=== PATIENT | female | born 1965 | race African-American/Black ===

== ENCOUNTER 2017-06-10 12:03 | Outpatient (CLI) | payer BC ==
--- NOTE | 2017-06-10 15:38 | XRay Report ---
XRAY CHEST TWO VIEWS: 06/10/17 12:03:00 CLINICAL: +PPD COMPARISON: 06/15/15 FINDINGS: Normal heart and pulmonary vasculature. The lungs are normally expanded and clear. A previously described right upper lobe opacity is no longer identified. No airspace disease or pleural effusion. Mild degenerative change in the spine. IMPRESSION: No acute cardiopulmonary process.No signs of acute or chronic TB.
== END 2017-06-10 12:04 | disposition home or self-care (01) ==
LOC: SPVIMAG 12:03 → EEVIPCON 12:03 → SPVIMAG 12:04
PROVIDERS: ATTEND Internal Medicine
DX: R76.11 Nonspecific reaction to tuberculin skin test without active tuberculosis (principal); M47.894 Other spondylosis, thoracic region
CPT/HCPCS: 71046